=== PATIENT | male | born 1985 | race Two or more races ===

== ENCOUNTER 2016-09-18 01:37 | Inpatient (IN) | payer OTHER ==
--- NOTE | ~2016-09-18 | EKG ---
PATIENT: OLEG DELONG UNIT #: [id number] Ventricular Rate: 100 BPM Atrial Rate: 100 BPM P-R Interval: 188 ms QRS Duration: 80 ms Q-T Interval: 330 ms QTC Calculation(Bezet): 425 ms P [place]: 35 degrees Calculated R [place]: 29 degrees Calculated T [place]: 50 degrees Diagnosis Line: Normal sinus rhythm Diagnosis Line: Possible Left atrial enlargement Diagnosis Line: Borderline ECG Diagnosis Line: Diagnosis Line: Confirmed by GABINO GUTIERREZ MD ([id number]) on Diagnosis Line: 09/18/2016 2:02:34 PM INTERPRETING MD: BRENDA RINCON
--- NOTE | ~2016-09-18 | EKG ---
PATIENT: OLEG DELONG UNIT #: [id number] Ventricular Rate: 94 BPM Atrial Rate: 94 BPM P-R Interval: 174 ms QRS Duration: 76 ms Q-T Interval: 318 ms QTC Calculation(Bezet): 397 ms P [place]: 33 degrees Calculated R [place]: 17 degrees Calculated T [place]: 38 degrees Diagnosis Line: Normal sinus rhythm Diagnosis Line: Possible Left atrial enlargement Diagnosis Line: Borderline ECG Diagnosis Line: When compared with ECG of 18-SEP-2016 03:43, Diagnosis Line: No significant change was found Diagnosis Line: Confirmed by HERB ZAPATA MD ([id number]) on Diagnosis Line: 09/21/2016 1:37:01 PM INTERPRETING MD: CLARENCE
--- NOTE | ~2016-09-18 | CO ---
Unit #: [id number] #: [id number] Patient: OLEG DELONG [id number] [address] [place], [place] [address] [id number] I MR#: [id number] NAME: OLEG DELONG ROOM: 229 Age: 30 Sex: M Admission Date: 09/18/2016 : 1985 Attending Physician: Edison Ochoa M.D. Consultation Date: 09/18/2016 CONSULTATION REPORT HISTORY OF PRESENT ILLNESS This is a pleasant 30-year-old male with history of type 1 diabetes mellitus since the age of 4 years, history of gastroparesis, coronary artery disease plus stent placement x4, presented to the emergency room for not feeling well. He was started about 2 weeks ago on an insulin pump. His blood sugar started going up and he switched to the subcu insulins, but his blood sugars continued to stay high for which reason he came to the emergency room. On his labs, his blood glucose level was above 600. He was found to be in acute renal failure with creatinine of 3.3 and sodium of 124. His previous A1c in 01/2016 was at 8.0. He has been admitted to the unit bed, started on insulin drip and IV fluids. I have been asked to see the patient for further management. The patient does report that he has been taking his insulin regularly. Declines any fever, chills, or any flu-like symptoms. No urgency, frequency, or dysuria. He does have some nausea and retrosternal chest heartburn, but no vomiting. PAST MEDICAL HISTORY Type 1 diabetes mellitus since age 4 with gastroparesis and peripheral neuropathy, history of DKA, coronary artery disease plus stent placement x4, history of gastroparesis. SOCIAL HISTORY Lives at home. History of tobacco use, quit tobacco use. FAMILY HISTORY Has a brother with type 1 diabetes mellitus. ALLERGIES None. REVIEW OF SYSTEMS A complete 12-point review of system was completed, is unremarkable at this time except as noted in HPI. PHYSICAL EXAMINATION GENERAL: He is lying comfortable, no acute distress. VITAL SIGNS: His temperature 97.7, pulse is 83, respirations 16, and blood pressure is 132/75. HEENT: EOMI. Pupils equally reactive to light. NECK: Supple. No thyromegaly noted. CHEST: Good air entry. CVS: Regular rhythm. No murmurs. ABDOMEN: Soft and nontender. Bowel sounds positive. Unit #: [id number] #: [id number] Patient: OLEG DELONG EXTREMITIES: No edema. Ulcers are noted. No amputations. NEUROLOGIC: Nonfocal. SKIN: No skin rashes noted. DIAGNOSTIC STUDIES LABORATORY RESULTS: Labs were reviewed. His creatinine is 3.0, glucose 636. Sodium 129, chloride 95. Rest of the CMP is within normal limits. He does have some very mild ketones. ASSESSMENT 1. Type 1 diabetes mellitus, poorly controlled. Etiology is not very clear at this time. Could be due to the exacerbation of gastroparesis versus severe gastritis. 2. Acute kidney injury due to the combination of dehydration and use of nonsteroidal antiinflammatory drugs. 3. Coronary artery disease plus stent. PLAN We will start the patient on Levemir 40 units one dose now, followed by 25 units subcu b.i.d., NovoLog 1 unit for every 8 g carbohydrates with meals. Limit carbs 45 to 60 g each meal. Cover with supplemental insulin as needed. Discontinue insulin drip. Accu-Cheks q.4h, Reglan 5 mg p.o. a.c. and h.s. We will continue to follow for further management. Dictated by... Britney Avila/miroslava TD: 09/20/2016 03:17 JOB #: [id number] CONSULTATION REPORT Page 1 of 1 X Mona Claros MD CONSULTATION REPORT
--- NOTE | ~2016-09-18 | CO ---
Unit #: [id number] #: [id number] Patient: ANDRE DELONG [id number] [address] [place], [place] [address] [id number] I MR#: [id number] NAME: ANDRE DELONG ROOM: 229 Age: 30 Sex: M Admission Date: 09/18/2016 : 1985 Attending Physician: Edison Ochoa M.D. Consultation Date: 09/18/2016 CONSULTATION REPORT REASON FOR CONSULTATION Acute renal failure. HISTORY OF PRESENT ILLNESS Mr. Andre Olson is a type 1 diabetic, who I am seeing in the intensive care unit at [facility]. He has been admitted for diabetic ketoacidosis with acute kidney injury. The patient tells me that for 4 days he had had trouble controlling his blood sugar despite increasing his insulin. He is followed by Dr. Segundo. He began to feel worse and came to the ER because of nausea, vomiting, abdominal pain, and diarrhea. He was also taking ibuprofen for pain. He denies chest pain or shortness of breath. He denies fever or chills. I cannot localize a preceding illness. PAST MEDICAL HISTORY 1. Juvenile diabetes. 2. He has three-vessel coronary artery disease and has had stent placements in the mid and proximal LAD and the mid circumflex and mid RCA. On heart catheterization, his EF was found to be 20% to 30%. 3. Hypertension. 4. Dyslipidemia. 5. History of prior DKA. PAST SURGICAL HISTORY He has had cardiac catheterization with PCI and stent placement. HOME MEDICATIONS Include aspirin 81 mg daily, Coreg 6.25 mg t.i.d., Humalog 75/25, hydralazine 25 mg b.i.d., Imdur 30 mg daily, Lasix 20 mg daily, Lipitor 80 mg daily, Zestril 40 mg daily, Effient 10 mg daily, Neurontin 800 mg t.i.d., Renvela 800 mg t.i.d., tramadol 50 mg t.i.d., [place] 1 tablet b.i.d., simvastatin 40 mg q.h.s., Claritin 10 mg daily, and Vascepa 1 g daily. SOCIAL HISTORY He is a former smoker and quit in 05/2015. He is not . He does not drink or use drugs. He is an employee of [employer]. FAMILY HISTORY Negative for kidney disease. REVIEW OF SYSTEMS GENERAL: Currently, the patient is feeling better. His blood sugars have still been labile today. HEENT: He denies headache or blurry vision. Unit #: [id number] #: [id number] Patient: ANDRE DELONG CHEST: He denies chest pain or shortness of breath. ABDOMEN: No nausea, vomiting, or diarrhea. GENITOURINARY: No urinary symptoms. PHYSICAL EXAMINATION VITAL SIGNS: His blood pressure is 115/83, heart rate is 80, and temperature 97.9. GENERAL: He is a pleasant-appearing Nigerian male, in no acute distress. HEENT: Extraocular muscles are intact. No eye drainage or icterus. Oropharynx is clear. NECK: Supple without JVD, thyromegaly, or carotid bruit. CHEST: Clear to auscultation bilaterally. CARDIAC: S1 and S2. Normal sinus rhythm. No gallop or rub. ABDOMEN: Soft, nontender, and nondistended. Positive bowel sounds. On his abdomen, he has swelling related to his insulin injections. EXTREMITIES: No cyanosis, clubbing, or edema. DIAGNOSTIC STUDIES LABORATORY RESULTS: Shows BUN of 39 and creatinine 1.7. Sodium 136, potassium 4.8, chloride 99, bicarbonate 25, calcium 9, and albumin 4.4. Urinalysis is nitrites negative, protein 2+, negative blood, rbc's 2 to 5, wbc's 2 to 5. ASSESSMENT AND PLAN 1. Acute kidney injury, likely multifactorial. The patient has become volume depleted from an osmotic diuresis. This is in the setting of using NSAIDs and lisinopril as well as Lasix. He could have a component of acute tubular necrosis. The patient agrees to avoid ibuprofen and other NSAIDs going forward. 2. Nondiabetic ketoacidosis hyperglycemia with dehydration. 3. Juvenile diabetes with retinopathy and proteinuria. 4. Cardiomyopathy with a reduced ejection fraction around 30%. He has history of coronary artery disease with PCI and stent placement. 5. Hypertension with relative low blood pressure. 6. Chronic kidney disease, unspecified. His baseline creatinine appears to range between 1.1 and 1.4. Thank you very much for allowing me to see Ranjana Olson in consultation. I will follow closely with you. Dictated by... Britney Muñoz/miroslava TD: 09/20/2016 16:09 JOB #: [id number] CONSULTATION REPORT Page 1 of 1 X Bell Romero MD X CONSULTATION REPORT
--- NOTE | ~2016-09-18 | HP ---
Unit #: [id number] #: [id number] Patient: OLEG DELONG [id number] [address] [address] [id number] I MR#: [id number] NAME: OLGE DELONG ROOM: 229 Age: 30 Sex: M Admission Date: 09/18/2016 : 1985 Attending Physician: Edison Ochoa M.D. Primary Care Physician: Primary Care Physician No HISTORY AND PHYSICAL ADMISSION DIAGNOSES 1. Nondiabetic ketoacidosis hyperglycemia. 2. Atypical chest pain. 3. History of coronary artery disease with history of cardiomyopathy. 4. History of hypertension. 5. Hypotension. 6. Acute kidney injury. HISTORY OF PRESENT ILLNESS Mr. Wu Olson is a 30-year-old gentleman well known to our service secondary to previous admissions, comes to the emergency room with the complaints that at home he could not get his blood sugars down. Initial workup in the ER showed him with the blood sugars of 636 along with the BUN and creatinine of 33 and 3.0. Patient otherwise has no complaints. Denies any headache, dizziness, fever, chills, nausea, vomiting or diarrhea, or abdominal pain. The patient complains of some atypical chest discomfort occasionally stating that he might have a heartburn sensation in the chest. Again, no syncope or presyncopal episodes. REVIEW OF SYSTEMS Twelve-point review of systems on this patient is basically negative except as above. PAST MEDICAL HISTORY Significant for: 1. History of coronary artery disease status post PCI with stent. 2. History of cardiomyopathy. 3. History of insulin-dependent diabetes. 4. Dyslipidemia. 5. Hypertension. PAST SURGICAL HISTORY Significant for: 1. Cardiac catheterization with PCI with stents. 2. Insulin pump placement. HOME MEDICATIONS Include: 1. Aspirin. 2. Coreg. 3. Humalog mix. 4. Hydralazine. 5. Imdur. 6. Lasix. Unit #: [id number] #: [id number] Patient: OLEG DELONG 7. Lantus. 8. Lipitor. 9. Zestril. 10. Effient. 11. Neurontin. 12. Renvela. 13. Tramadol. 14. [place]. 15. Simvastatin. 16. Claritin. 17. Vascepa. ALLERGIES No known drug allergies. SOCIAL HISTORY No history of tobacco, alcohol, or illicit drugs. FAMILY HISTORY Unremarkable. PHYSICAL EXAMINATION VITAL SIGNS: BP 81/50, heart rate 75, respirations 16, temperature 98.5. GENERAL: The patient is a 30-year-old gentleman in no acute distress. HEENT: Head is atraumatic. Pupils equal, round, reactive to light and accommodation. Extraocular muscles are intact. Oropharynx is clear. NECK: Supple. No mass, no JVD, no bruits. LUNGS: Clear to auscultation bilaterally. HEART: S1, S2. No murmurs. ABDOMEN: Soft, nontender, nondistended. LOWER EXTREMITIES: Without any cyanosis, clubbing, or edema. NEUROLOGIC: Grossly intact. No focal deficits. DIAGNOSTIC STUDIES LABORATORY: Chemistry as above, sodium 129. White count 10.5, hemoglobin 14 and hematocrit 43. Set of cardiac enzymes negative. IMAGING: Chest x-ray negative. ASSESSMENT AND PLAN 1. Non-diabetic ketoacidosis hyperglycemia. Started on non-DKA IV insulin per non-DKA protocol. Admit to ICU. Consult Dr. Claros. 2. Atypical chest pain. Trend troponins. Cardiology to see. 3. Acute kidney injury on chronic kidney disease. Will hold the lisinopril. Avoid nephrotoxics. 4. History of coronary artery disease and cardiomyopathy in the past., ros PCI with stent. 5. Insulin-dependent diabetes. 6. Dyslipidemia. Continue home statin. 7. Continue GI and DVT prophylaxis with some Protonix and SCDs. Dictated by Unit #: [id number] #: [id number] Patient: OLEG DELONG M.D. OC/cherelle TD: 09/19/2016 22:57 JOB #: [id number] HISTORY AND PHYSICAL Page 1 of 1 X Edison Ochoa MD HISTORY AND PHYSICAL
--- NOTE | ~2016-09-18 | CO ---
Unit #: [id number] #: [id number] Patient: OLEG DELONG [id number] [address] [place], [place] [address] [id number] I MR#: [id number] NAME: OLEG DELONG ROOM: 229 Age: 30 Sex: M Admission Date: 09/18/2016 : 1985 Attending Physician: Edison Ochoa M.D. Primary Care Physician: Primary Care Physician No Consultation Date: 09/18/2016 CONSULTATION REPORT REASON FOR CONSULTATION Chest pain. HISTORY OF PRESENT ILLNESS This is a 30-year-old male from [place], well known to our group. He follows with Dr. Worley in the office. He has a history of coronary artery disease with anterior wall SD in 05/2015. Cardiac cath in 05/2015 showed left main short vessel, LAD 99%, proximal and mid, left circumflex 95%, RCA mid 99%, and PDA branch 95%. At that time, he underwent staged stents to mid and proximal LAD, mid circumflex, and mid RCA. He also has a history of ischemic cardiomyopathy with an EF of 10% to 15% per echo in 05/2015 and 20% to 30% per cath in 05/2015. A Cardiolite stress test done in 07/2015 was negative for stress-induced ischemia, but showed a small old lateral wall SD and the EF of 67%. In addition, he has a history of juvenile diabetes with history of diabetic ketoacidosis, chronic kidney disease, hypertension, hyperlipidemia, and former smoker. He presented to the ER after his blood glucoses were running in the high 800s at home all day. Denies any recent illness with fever, diarrhea, nausea, or vomiting. Denies any changes in his diet or medications. Denies chest pain or shortness of air. He does report epigastric burning that spreads up into his throat intermittently with some accompanied nausea. PAST MEDICAL HISTORY 1. Coronary artery disease, status post anterior wall SD in 05/2015, status post stent. 2. Cardiac cath in 05/2015 showed left main short vessel, LAD 99% proximal and 99% mid, left circumflex 95%, RCA mid 99%, and PDA branch 95%, status post staged stent to mid and proximal LAD, mid circumflex, and mid RCA. 3. Ischemic cardiomyopathy with EF 10% to 15% per echo in 05/2015 and 20% to 30% per cath in 05/2015 and 67% per stress test in 07/2015. 4. Chronic kidney disease. 5. Hypertension. 6. Juvenile diabetes with history of DKA. 7. Hyperlipidemia. 8. History of tobacco abuse, quit in 2015. PAST SURGICAL HISTORY 1. Cardiac cath with PCI and drug-eluting stent. 2. Right eye surgery. Unit #: [id number] #: [id number] Patient: OLEG DELONG SOCIAL HISTORY Denies alcohol or illicit drug use. Reformed smoker who quit in 05/2015. FAMILY HISTORY Denies a family history of premature coronary artery disease. ALLERGIES No known drug allergies. HOME MEDICATIONS Neurontin 800 mg t.i.d., Renvela 800 mg t.i.d., tramadol hydrochloride 50 mg p.o. t.i.d. p.r.n. pain, [place] 7.5/325 one b.i.d. p.r.n. pain, simvastatin 40 mg p.o. at bedtime, Lasix 20 mg p.o. daily, Lantus 15 units subcutaneous b.i.d., Lipitor 80 mg p.o. daily, Zestril 40 mg p.o. daily, Effient 10 mg p.o. daily, aspirin 81 mg p.o. daily, Coreg 6.25 mg p.o. t.i.d., Humalog Mix 75/25 sliding scale insulin, hydralazine 25 mg p.o. b.i.d., Imdur ER 30 mg p.o. daily, Claritin 10 mg p.o. daily, Vascepa 1 g once a day. REVIEW OF SYSTEMS Otherwise, negative except for what was stated in the HPI. PHYSICAL EXAMINATION VITAL SIGNS: Temperature 98, heart rate 107, respiratory rate 18, blood pressure 117/94, height 64 inches, weight 72.5 kg. GENERAL: This is a pleasant Bulgarian male, resting in bed, in no acute distress. HEENT: Head is atraumatic and normocephalic. Pupils are equal and round. Mucous membranes are moist. NECK: Supple. Trachea is midline. Negative for JVD. LUNGS: Clear to auscultation. Nonlabored respirations. CARDIOVASCULAR: S1, S2. Regular rate and rhythm. No murmurs, rubs, or gallops auscultated. ABDOMEN: Soft, nontender, nondistended. EXTREMITIES: Pulses are palpable. No pedal edema. No cyanosis. NEUROLOGIC: Alert and oriented x3. Moves all extremities equally and follows command without difficulty. DIAGNOSTIC STUDIES LABORATORY RESULTS: Sodium 124, potassium 5.1, chloride 88, BUN 38, creatinine 3.3, glucose 636. Hemoglobin 14.1, hematocrit 46.3, white blood cell count 10.5, platelets 269. Troponin less than 0.05. IMAGING STUDIES: No active process. No cardiomegaly. CARDIOVASCULAR STUDIES: EKG shows sinus tachycardia with ventricular rate of 102. Echocardiogram on 05/25/2015 showed EF of 10% to 15%, large anterior wall and apical akinesis, [id number] mitral regurge, trace tricuspid regurge, and trace pericardial effusion. ASSESSMENT 1. Insulin-dependent diabetes mellitus with markedly elevated blood glucose. 2. Hyperkalemia. 3. Acute kidney injury on chronic kidney disease. 4. Coronary artery disease, history of anterior wall myocardial infarction with staged stenting. 5. Hyperlipidemia. Unit #: [id number] #: [id number] Patient: OLEG DELONG 6. Reformed smoker. 7. Hypertension. 8. Gastroesophageal reflux disease. PLAN 1. Currently, stable from cardiovascular standpoint. We will assess LV function with a 2D echocardiogram. 2. Check fasting lipid profile. 3. BMP and CBC in a.m. 4. We will hold his LEANDRA inhibitor secondary to elevated creatinine. We will continue his hydralazine and nitrate combo. 5. Continue statin, beta-ira, dual antiplatelet therapy. Thank you for asking us to see this patient. We appreciate the consult. Dictated by... YOLANDE Field/miroslava TD: 09/19/2016 05:37 JOB #: [id number] CONSULTATION REPORT Page 1 of 1 X X CONSULTATION REPORT
--- NOTE | ~2016-09-18 | A ---
[facility] Nutrition Therapy DATE: 09/19/16 Patient: OLEG HA FORREST Physician: FIORELLA [address]: [address] Room/Bed: [address] [place] [address], Zip: [place] [address] Admit Date: 09/18/16 Date of : [birth year] Height: 5 4 Weight: 145 66 NUTRITIONAL ASSESSMENT: REASON: DKA DX 30 yo male admitted for DKA PMH: Type 1 DM, GERD, gastritis, HLD, HTN, CAD s/p stents Anthropometrics: Ht: 64" wt: 66 kg BMI: 25.0 Labs: Gluc 127 BUN 27 Creat 1.7 Alb 3.3 Accuchecks 135-243 Trig 1337 GFR 52.6 Meds: Levemir, reglan, novolog, protonix, furosemide I/O & Bowel function: 3750/2100, last BM 09/17 Skin Integrity: Rash BLE Edema: none noted Diet: Consistent carbohydrate/ low fiber Assessment: Chart reviewed, events noted. Pt admitted for DKA with h/o Type 1 DM and significant cardiovascular disease. [place]/ CKD noted. Pt c/o abdominal pain, and MD questioning gastroparesis. Per MD note, pt to have emptying study or EGD once stable, possibly as an outpatient. Pt has been placed on a 45 gram CC/ low fiber diet. Per previous admission RD notes, the pt has been educated on HH/CC diet strategies previously. RD spoke with the pt at bedside. Pt reports improvement in abdominal pain, and reports that he has been constipated lately. Pt denies any recent weight loss, noting 75-100% intake of meals. RD provided overview of low fiber/ HH/ CC diet. Pt appreciated the information, and reported that he typically only consumes one large meal per day at home. RD advised against this, and recommended smaller, more frequent heart healthy meals. Pt voiced understanding, and reports that he is likely going to get an insulin pump. Pt received information regarding his diet in the "Insulin pump packet" that he received. RD encouraged diet compliance, and pt agreed. Pt would likely benefit from seeing an outpatient RD for accountability. Dx: Impaired glycemic control RT poorly controlled DM AEB DKA Dx, accuchecks 135-243. Intervention: 1. Continue current diet, adding 6 small meals 2. Outpatient diet education [facility] Nutrition Therapy DATE: 09/19/16 Patient: OLEG CLAYTON Physician: FIORELLA Address: [address] Room/Bed: [address] [place] [address], Zip: [place] [address] Admit Date: 09/18/16 Date of : [birth year] Height: 5 4 Weight: 145 66 Monitoring, Evaluation and Goals: 1. Improve labs; glucose, accuchecks, trig, BUN, creat 2. GI; promote regular GI function Recommendations: 1. Continue 45 gram CCD + fiber restriction per MD. Add 6 small meals/ heart healthy to diet order. 2. Pt would benefit from seeing an outpatient RD for additional diet education and accountability, especially if he is diagnosed with gastroparesis. 3. Optimize the pt's insulin regimen noting elevated blood glucose levels. Pt is at mild nutritional risk. RD will follow hospital course. Respectfully, AL GREWAL RD, LD [employer] [facility] cc: client file
--- NOTE | ~2016-09-18 | CO ---
Unit #: [id number] #: [id number] Patient: OLEG DELONG [id number] [address] [address] [id number] I MR#: [id number] NAME: OLEG DELONG ROOM: 229 Age: 30 Sex: M Admission Date: 09/18/2016 : 1985 Attending Physician: Edison Ochoa M.D. Primary Care Physician: Primary Care Physician No Consultation Date: 09/18/2016 CONSULTATION REPORT REASON FOR CONSULTATION Abdominal pain and GERD. HISTORY OF PRESENTING ILLNESS Mr. Wu Olson is a 30-year-old gentleman, was admitted with poorly controlled diabetes mellitus. He says he has been watching everything and using his medications, however, his sugars stay high. He has a significant GERD symptoms along with recurrent regurgitation. He says he has been taking his PPIs regularly. No hematemesis. No melena. Mild epigastric discomfort. No change in bowel movements. PAST MEDICAL HISTORY Significant for; 1. Coronary artery disease, status post stent placements in 05/2015. 2. Diabetes mellitus, type 1. 3. Hypertension. 4. Effient therapy. 5. Hyperlipidemia. REVIEW OF SYSTEMS A complete 10-point review of systems was done, which is unremarkable other than as mentioned above. SOCIAL HISTORY Nonsmoker and nonalcoholic. FAMILY HISTORY Noncontributory. PHYSICAL EXAMINATION VITAL SIGNS: Stable. Afebrile. GENERAL: No acute distress. HEENT: Pupils are equal and reactive. Sclerae are anicteric. Oral mucosa is moist. NECK: No JVD. No lymphadenopathy. CHEST: Clear to auscultation bilaterally. CARDIOVASCULAR: Regular rate and rhythm. No murmurs. ABDOMEN: Soft, nontender, and nondistended. EXTREMITIES: Without clubbing, cyanosis, or edema. NEUROLOGIC: Intact grossly. No focal sensory or motor deficits. Cranial nerves are intact. SKIN: Warm and dry. DIAGNOSTIC STUDIES Unit #: [id number] #: [id number] Patient: OLEG DELONG LABORATORY RESULTS: BUN and creatinine are 38 and 3.3, sodium at 129. Amylase and lipase are abnormal. Liver functions are normal. CBC shows a hemoglobin of 14, white count of 10, and platelet count of 269. IMAGING STUDIES: Chest x-ray was done, which is unremarkable. ASSESSMENT AND PLAN 1. The patient with significant gastroesophageal reflux disease symptoms as well as regurgitation and epigastric discomfort. Possible gastroesophageal reflux disease complicated with gastroparesis. EGD was done previously in 2014 and shows chronic gastritis at that time. At this time, given his multiple problems, I will treat him symptomatically with PPIs and low-residue diet. We will consider gastric emptying scan and/or EGD once he is stable or as an outpatient later on. 2. Coronary artery disease. Ejection fraction of 15% last time. Status post stent placement. 3. Poorly controlled diabetes mellitus. Treatment in progress. Thank you Dr. Ochoa for this interesting consult. We will follow along. Dictated by... Britney Puga/miroslava TD: 09/18/2016 15:20 JOB #: [id number] CONSULTATION REPORT Page 1 of 1 X Gabriele Williamson MD X CONSULTATION REPORT
--- NOTE | ~2016-09-18 | DS ---
Unit #: [id number] #: [id number] Patient: OLEG DELONG [id number] [address] [address] [id number] I MR#: [id number] NAME: OLEG DELONG ROOM: 229 Age: 30 Sex: M Admission Date: 09/18/2016 : 1985 Discharge Date: 09/20/2016 Attending Physician: Edison Ochoa M.D. Primary Care Physician: No Primary Care Physician DISCHARGE SUMMARY CONSULTATION DURING HOSPITALIZATION 1. Dr. Claros - Endocrinology. 2. Dr. Calloway - Cardiology. FINAL DIAGNOSES 1. Non-diabetic ketoacidosis. 2. Hyperglycemia with a history of diabetes mellitus type 1. 3. Acute kidney injury due to combination of dehydration and use of nonsteroidal drugs. 4. History of coronary artery disease with history of cardiomyopathy. 5. History of chronic kidney disease. 6. Ejection fraction of 10% to 15%. 7. Hypertension. 8. Hyperlipidemia. DISCHARGE MEDICATIONS 1. Neurontin 800 mg three times a day. 2. Claritin 10 mg daily. 3. Lipitor 8 mg at bedtime. 4. Coreg 6.25 mg three times a day. 5. Lasix 20 mg daily. 6. Imdur 30 mg daily. 7. Levemir 30 units subcu b.i.d. 8. Humalog 8 units subcu t.i.d. 9. Zestril 40 mg daily. 10. Hydralazine 25 mg twice a day. 11. Simvastatin 14 mg q. h.s. 12. Aspirin 81 mg daily. 13. Hydrocodone on a p.r.n. basis. 14. Effient 10 mg daily. 15. Protonix 40 mg daily. LAB WORKUP ON DISCHARGE Sodium 139, potassium 4.4, chloride 105, BUN 27, creatinine 1.7, WBC 11.2, hemoglobin 12.7, hematocrit 38.4, platelet count of 243. Lipid profile shows total cholesterol 314, triglycerides 1337, HDL 29. Urinalysis was 2+ protein, more than 1000 glucose. Troponin less than 0.05. HOSPITAL COURSE Mr. Washburn is a 30-year-old male who has multiple medical problems, was admitted in the hospital with diabetic ketoacidosis. The patient has a Unit #: [id number] #: [id number] Patient: OLEG DELONG history of diabetes mellitus type 1. Dr. Claros was consulted and insulin drip was started and later on changed to Levemir. The patient's medications have been adjusted. The patient is doing much better on that aspect. The patient could have gastroparesis also. The patient was found to have acute kidney injury. Renal was consulted. Hydration was done. The patient is stable at this time. The patient does have a history of coronary artery disease. He did complain of chest pain. Cardiology was consulted. Troponin is negative so far. Echocardiogram is being done but results are still pending. We will wait for the results and cardiology is okay for discharge. EXAMINATION ON DISCHARGE Blood pressure 151/88, respiratory rate 18, pulse is 114, temperature 99.4. Oxygen saturation is 98%. Head is normocephalic. CHEST has fair air entry. No additional sounds. CVS: S1, S2 positive. Regular rhythm. ABDOMEN: Mild epigastric tenderness. No chest tenderness. Otherwise, abdomen is soft. No rigidity or rebound. Bowel sounds were positive. DISCHARGE INSTRUCTIONS Patient will be discharged home if okay with cardiology. Chest pain is very atypical. There is a possibility of indigestion. We are going to try Mylanta, one dose now, and prescription for Protonix has been written. I will confirm with renal about lisinopril as that was held during admission secondary to acute renal failure. Follow up with primary care provider in one week. Diet counseling done. Dictated by... Britney Laura TD: 09/23/2016 07:59 JOB #: [id number] DISCHARGE SUMMARY Page 1 of 1 X Kaylen Villa MD X DISCHARGE SUMMARY
--- NOTE | ~2016-09-18 | CR72 ---
[facility] A Service of [facility] & [facility] RADIOLOGY TEXT RESULTS PATIENT: OLEG DELONG LOCATION: [address] : [birth year] UNIT #: [id number] AGE: [address]: Edison Ochoa MD SEX: M ORDER DR: [id number] [facility] [address] [place], [place] [address] [id number] I MR#: [id number] #: [id number] NAME: OLEG DELONG : 1985 SEX: M STUDY DATE/TIME: 09/18/2016 3:22 UNIT: CEDOF ROOM: 42426 STUDY DESCRIPTION: CR Chest Single View Portable Attending Physician: Edison Ochoa M.D. Ordering Physician: Devin Shore D.O. Primary Care Physician: Primary Care Physician No MEDICAL IMAGING REPORT This report is preliminary unless electronic signature is present EXAM Portable chest INDICATION Chest pain today PROCEDURE Frontal view chest COMPARISON 06/15/2016 FINDINGS Heart size stable. Persistent low lung volumes. No new dense consolidation or pneumothorax. IMPRESSION No active process. No change from 06/15/2016. Dictated by... Harshad Alanis M.D. THIS IS AN ELECTRONICALLY VERIFIED REPORT Harshad Alanis M.D. at 09/18/2016 10:10 PM Gertrudis TD: 09/18/2016 09:52 JOB #: [id number] MEDICAL IMAGING REPORT Page 1 of 1 COPY
[~2016-09-18 01:37] MED LIST: ASPIRIN EC81 M1 PO; BRILINTA90 MG PO; CARVEDILOL6.25 MG PO; COREG6.25 M1 PO; EFFIENT10 MG PO; HUMALOG MIX 75/23 M1; HUMALOG100 U/M1 SQ; HUMALOG100 U/M2; HUMALOG100 U/ML SUBQ; HYDRALAZINE HCL25 MG PO; HYDROCHLOROTHIA25 MG PO; IMDUR-ER30 M1 DOB; IMDUR-ER30 M1 PO; LANTUS SOLOSTAR3 ML SUBQ; LANTUS100 U/ML SQ; LANTUS100 U/ML SUBQ; LANTUS100 UNITS/ SUBQ; LASIX20 MG PO; LIPITOR20 MG PO; LIPITOR40 MG PO; LIPITOR80 MG PO; LISINOPRIL PO; NEURONTIN300 MG PO; NEURONTIN800 MG PO; NITROGLYCERIN0.4 MG SL; NITROGLYGERIN0.4 MG SL; NORVASC10 MG PO; NOVOLIN R100 UNITS/; PROTONIX20 MG PO; RENVELA800 MG PO; ZESTRIL40 MG PO
[2016-09-18 04:14] LABS: BASOPHIL# 0.1 X10e3 (0-0.3); BASOPHIL% 0.6 % (0-2.5); EOSINOPHIL# 0.5 X10e3 (0-0.7); EOSINOPHIL% 5.2 % (0.0-7.0); HEMATOCRIT 43.3 % (38.0-50.0); HEMOGLOBIN 14.1 gm/dL (13.0-16.0); LYMPHOCYTE# 4.1 X10e3 (1.0-3.5); LYMPHOCYTE% 39.4 % (17.0-45.0); MEAN CORPUSCULAR HEMOGLOBIN 28.1 PG (28-34); MEAN CORPUSCULAR HGB CONC 32.6 g/dL (30-36); MEAN PLATELET VOLUME 8.9 FL (6.5-11.5); MONOCYTE# 0.9 X10e3 (0-1.0); MONOCYTE% 8.2 % (3.0-12.0); NEUTROPHIL# 4.9 X10e3 (1.5-7.1); NEUTROPHIL% 46.6 % (40-75); PLATELET COUNT 269 X10e3 (140-420); RED BLOOD COUNT 5.04 X10e (3.90-5.60); RED CELL DISTRIBUTION WIDTH 14.3 % (11.0-15.5); WHITE BLOOD COUNT 10.5 X10e3 (4.0-10.5)
[2016-09-18 04:17] LABS: DIFF IND NO
[2016-09-18 04:40] LABS: BETA HYDROXYBUTYRATE 0.54 MMOL/L (0.02-0.27); BILIRUBIN, DIRECT 0.1 mg/dL (0.0-0.2); BILIRUBIN,INDIRECT 0.5 mg/dL (0.0-0.9); BILIRUBIN,TOTAL 0.6 mg/dL (0.2-2.0); BUN/CREATININE RATIO 11.51; CALCIUM SERUM 9.2 mg/dL (8.4-10.2); CREATININE SERUM 3.3 mg/dL (0.6-1.4); GLOM FILT RATE Estimated 23.6 mL/min (>60); POTASSIUM 5.1 mmol/L (3.5-5.1)
[2016-09-18 04:44] LABS: URINE SOURCE CLEAN CATCH
[2016-09-18 04:45] LABS: POC - CKMB <1.0 ng/mL (0.0-7.9); POC - TROPONIN <0.05 ng/mL (<=0.05)
[2016-09-18 04:47] LABS: URINE APPEARANCE CLEAR; URINE BILIRUBIN NEG (NEG); URINE BLOOD NEG (NEG); URINE COLOR YELLOW; URINE GLUCOSE >1000 MG/DL (NEG); URINE KETONE NEG (NEG); URINE LEUKOCYTE ESTERASE NEG (NEG); URINE NITRATE NEG (NEG); URINE PH 5.5 (5-8); URINE PROTEIN 2+ (NEG); URINE UROBILINOGEN 0.2 MG/DL (NEG)
[2016-09-18 04:50] LABS: URBCS1 AUWI 0-2 /[HPF] (0-2); URINE BACTERIA AUWI NEG (NEGATIVE); URINE SQUAMOUS EPITHELIAL CELL NONE SEEN /[HPF]; UWBCS1 AUWI 0-2 (0-5)
[2016-09-18 04:52] LABS: CULTURE INDICATED? NO
[2016-09-18 06:37] LABS: POC - CKMB <1.0 ng/mL (0.0-7.9); POC - TROPONIN <0.05 ng/mL (<=0.05)
[2016-09-18 09:12] LABS: CALCIUM SERUM 9.1 mg/dL (8.4-10.2); GLOM FILT RATE Estimated 26.5 mL/min (>60); POTASSIUM 4.8 mmol/L (3.5-5.1)
[2016-09-18] MEDS ORDERED: RENVELA800 MG PO (09:58)
[2016-09-18] MEDS ORDERED: TRAMADOL HCL50 M1 PO (09:59)
[2016-09-18] MEDS ORDERED: HYDROCODON-ACE1 EAC9 PO (10:00)
[2016-09-18] MEDS ORDERED: SIMVASTATIN40 MG PO (10:01)
[2016-09-18] MEDS ORDERED: VASCEPA1 GM PO (10:01)
[2016-09-18] MEDS ORDERED: CLARITIN10 M3 PO (10:01)
[2016-09-18 13:05] LABS: CHOLESTEROL 314 mg/dL (0-200); HDL CHOLESTEROL 29 mg/dL (29-75); TRIGLYCERIDES 1337 mg/dL (10-160)
[2016-09-19 05:36] LABS: BASOPHIL# 0.1 X10e3 (0-0.3); BASOPHIL% 0.7 % (0-2.5); EOSINOPHIL% 8.7 % (0.0-7.0); HEMATOCRIT 38.4 % (38.0-50.0); HEMOGLOBIN 12.7 gm/dL (13.0-16.0); LYMPHOCYTE# 5.2 X10e3 (1.0-3.5); LYMPHOCYTE% 46.2 % (17.0-45.0); MEAN CELL VOLUME 85.6 FL (83-96); MEAN CORPUSCULAR HEMOGLOBIN 28.4 PG (28-34); MEAN CORPUSCULAR HGB CONC 33.2 g/dL (30-36); MEAN PLATELET VOLUME 8.8 FL (6.5-11.5); MONOCYTE# 0.6 X10e3 (0-1.0); MONOCYTE% 5.3 % (3.0-12.0); NEUTROPHIL# 4.4 X10e3 (1.5-7.1); NEUTROPHIL% 39.1 % (40-75); PLATELET COUNT 243 X10e3 (140-420); RED BLOOD COUNT 4.48 X10e (3.90-5.60); RED CELL DISTRIBUTION WIDTH 14.4 % (11.0-15.5); WHITE BLOOD COUNT 11.2 X10e3 (4.0-10.5)
[2016-09-19 05:39] LABS: DIFF IND NO
[2016-09-19 07:16] LABS: ALBUMIN SERUM 3.3 g/dL (3.5-5.0); BILIRUBIN,TOTAL 0.2 mg/dL (0.2-2.0); BUN/CREATININE RATIO 15.88; CALCIUM SERUM 8.8 mg/dL (8.4-10.2); CREATININE SERUM 1.7 mg/dL (0.6-1.4); GLOM FILT RATE Estimated 52.6 mL/min (>60); POTASSIUM 4.4 mmol/L (3.5-5.1); PROTEIN TOTAL SERUM 5.5 g/dL (6.0-8.3)
[2016-09-19 12:29] LABS: CREATININE,RANDOM URINE 24 mg/dL; TOTAL PROTEIN,RANDOM URINE 46 mg/dl (<10)
[2016-09-20 09:21] LABS: CK TOTAL 55 IU/L (36-174)
[2016-09-20 10:00] LABS: CALCIUM SERUM 8.8 mg/dL (8.4-10.2); POTASSIUM 4.8 mmol/L (3.5-5.1)
[2016-09-20 10:10] LABS: BUN/CREATININE RATIO 15.38; CREATININE SERUM 1.3 mg/dL (0.6-1.4); GLOM FILT RATE Estimated 72.7 mL/min (>60)
[2016-09-20] MEDS ORDERED: LEVEMIR100 UNITS/ SUBQ (14:04)
[2016-09-20] MEDS ORDERED: NOVOLOG100 U/ML SUBQ (14:05)
[2016-09-20] MEDS ORDERED: PROTONIX PO (14:06)
== END 2016-09-20 14:37 | disposition home or self-care (01) | DRG 699 ==
LOC: CED 01:37 → CEDOF 06:10 → CED 07:16 → CEDOF 07:16 → CICCU3 09:20 → CEDOF 09:20 → C2A 09-19 09:33
PROVIDERS: Emergency Medicine; Hospitalist; Internal Medicine; Internal Medicine Cardiovascular Disease; Internal Medicine Nephrology; Physician Assistant Medical
DX: E10.22 Type 1 diabetes mellitus with diabetic chronic kidney disease (principal); E87.2 Acidosis; I95.9 Hypotension, unspecified; N17.9 Acute kidney failure, unspecified; K31.84 Gastroparesis; E10.65 Type 1 diabetes mellitus with hyperglycemia; E10.42 Type 1 diabetes mellitus with diabetic polyneuropathy; E87.5 Hyperkalemia; E10.43 Type 1 diabetes mellitus with diabetic autonomic (poly)neuropathy; N18.3 Chronic kidney disease, stage 3 (moderate); E86.0 Dehydration; R07.89 Other chest pain; I25.10 Atherosclerotic heart disease of native coronary artery without angina pectoris; Z79.4 Long term (current) use of insulin; Z79.82 Long term (current) use of aspirin; I12.9 Hypertensive chronic kidney disease with stage 1 through stage 4 chronic kidney disease, or unspecified chronic kidney disease; E78.5 Hyperlipidemia, unspecified; Z87.891 Personal history of nicotine dependence; I25.5 Ischemic cardiomyopathy; I25.2 Old myocardial infarction
CPT/HCPCS: 36415; 71010; 80048; 80053; 80061; 80076; 81003; 82010; 82550; 82553; 82570; 82947; 84100; 84156; 84484; 85025; 93005; 93306; 96374; 96375; 99285; C9113; J1815; J2405

== ENCOUNTER 2016-11-01 20:08 | Inpatient (IN) | payer OTHER ==
[~2016-11-01] VITALS: Ht 165.1 cm; Wt 74.4 kg
--- NOTE | ~2016-11-01 | EKG ---
PATIENT: OLEG DELONG UNIT #: [id number] Ventricular Rate: 99 BPM Atrial Rate: 99 BPM P-R Interval: 166 ms QRS Duration: 88 ms Q-T Interval: 318 ms QTC Calculation(Bezet): 408 ms P [place]: 38 degrees Calculated R [place]: 30 degrees Calculated T [place]: 51 degrees Diagnosis Line: Normal sinus rhythm Diagnosis Line: Possible Left atrial enlargement Diagnosis Line: Borderline ECG Diagnosis Line: Diagnosis Line: Confirmed by GABINO GUTIERREZ MD ([id number]) on Diagnosis Line: 11/02/2016 2:01:08 PM INTERPRETING MD: BRENDA RINCON
--- NOTE | ~2016-11-01 | EKG ---
PATIENT: OLEG DELONG UNIT #: [id number] Ventricular Rate: 113 BPM Atrial Rate: 113 BPM P-R Interval: 152 ms QRS Duration: 76 ms Q-T Interval: 362 ms QTC Calculation(Bezet): 496 ms P [place]: 27 degrees Calculated R [place]: 42 degrees Calculated T [place]: 17 degrees Diagnosis Line: Sinus tachycardia Diagnosis Line: Possible Left atrial enlargement Diagnosis Line: Anterior infarct , age undetermined Diagnosis Line: Abnormal ECG Diagnosis Line: Diagnosis Line: Confirmed by GABINO GUTIERREZ MD ([id number]) on Diagnosis Line: 11/02/2016 2:00:32 PM INTERPRETING MD: BRENDA RINCON
--- NOTE | ~2016-11-01 | DS ---
Unit #: [id number] #: [id number] Patient: OLEG DELONG [id number] [address] [address] [id number] I MR#: [id number] NAME: OLEG DELONG ROOM: 577 Age: 30 Sex: M Admission Date: 11/02/2016 : 1985 Discharge Date: 11/03/2016 Attending Physician: Del Albright M.D. Primary Care Physician: Alfredo Sainz M.D. DISCHARGE SUMMARY DISCHARGE DIAGNOSES 1. Angina pectoris. 2. Acute kidney injury on chronic kidney disease, stage 3, resolved. 3. Transient hypotension secondary to antihypertensive. 4. Uncontrolled hypertension. 5. History of anterior wall myocardial infarction, status post multiple stents in 05/2015. 6. Recent exercise Cardiolite stress test on 07/04/2016 at [facility], which shows no ischemia and ejection fraction of 64%. 7. Peripheral neuropathy. 8. Hypertension. 9. Hyperlipidemia. 10. Diabetes mellitus type 1. 11. Nicotine abuse. DISCHARGE MEDICATIONS Humalog insulin per sliding scale a.c. and h.s., Lantus 25 units q.h.s., Lantus 25 units q.a.m., Vascepa 1 g p.o. daily, aspirin 81 mg daily, hydrocodone/acetaminophen 7.5/300 mg q.i.d., tramadol 50 mg t.i.d., Renvela 800 mg t.i.d., Effient 10 mg daily, Imdur 60 mg daily, gabapentin 800 mg t.i.d., loratadine 10 mg daily, atorvastatin 80 mg daily, carvedilol 12.5 mg b.i.d., amlodipine 5 mg daily, furosemide 20 mg q.h.s. and 40 mg q.a.m., hydralazine 25 mg b.i.d. HOSPITAL COURSE This is a 30-year-old male, who presented with a complaint of chest pain. He was ruled out for an acute myocardial infarction with negative cardiac enzymes and troponin. He had no EKG changes. He had a recent stress test done at [facility] on 07/05/2016 which showed no ischemia. For this reason, no repeat stress test was ordered. He has a history of multiple PCI and stents after large anterior wall myocardial infarction in 2016. He had multiple angioplasty stents placement to the LAD, circumflex, right coronary artery, and PDA with balloon angioplasty to the diagonal branch. He had no other blockages. He has been on dual-antiplatelet therapy with aspirin and Effient. He had an elevated creatinine of 2.1 during this stay. Lisinopril was discontinued. He also had an episode of transient hypotension after given a combination of pain medications and antihypertensive medications. His blood pressure was uncontrolled up to 180/100 mmHg. He was started on Norvasc. With increase in his Imdur and beta-ira to optimize his cardiac medicines. After the combination of these medications his blood pressure dropped to the 70s. He was treated Unit #: [id number] #: [id number] Patient: OLEG DELONG with IV fluids. His blood pressure improved. He remained on IV fluids throughout the night, because of his creatinine elevation. His creatinine improved to 1.7 the following day. He has ambulated in the hallway and has went off the floor to smoke on several occasions without any recurrent chest pain. He had no shortness of breath or arrhythmias. Bladder scan was done by Renal as well as renal ultrasound. Results of the renal ultrasound are currently pending. He is stable for discharge today. PHYSICAL EXAMINATION VITAL SIGNS: Blood pressure 150/91, heart rate 87, temperature 98.1. CHEST: Clear to auscultation. HEART: S1 and S2. Regular rate and rhythm. ABDOMEN: Soft with positive bowel sounds present. EXTREMITIES: Without leg edema. SKIN: Warm and dry. DIAGNOSTIC STUDIES LABORATORY RESULTS: Hemoglobin 12.6, hematocrit 38.6, platelet count 281, and white count 10.9. Sodium 136, potassium 4.2, BUN 22, creatinine 1.7, glucose 135. Cholesterol 195, triglycerides 572, LDL not done, HDL 27. CONSULTATIONS Dr. Knowles of Renal. DISCHARGE INSTRUCTIONS 1. The patient will be discharged home today. 2. Follow up with Dr. Worley in 6 weeks. Follow up with his primary care physician in 2 to 3 weeks. Follow up with Renal in 2 to 4 weeks. 3. The patient may return to work on 11/04/2016 without restrictions. 4. Continue dual anti-platelet therapy with aspirin and Effient. 5. Lisinopril has been discontinued, because of acute kidney injury. Renal will see the patient in the office and decide when to restart. 6. Norvasc has been added and carvedilol has been increased. Prescription has been provided. 7. Encourage the patient to quit smoking. Thank you for allowing us to assist with this patient's care. Dictated by... Erik HuertaPSusiRSusiN. for Britney Ansari/miroslava TD: 11/06/2016 05:33 JOB #: [id number] CC: Britney Piper/invision Please Delete DISCHARGE SUMMARY Page 1 of 1 X Benja Kelley APRN X DISCHARGE SUMMARY
--- NOTE | ~2016-11-01 | HP ---
Unit #: [id number] #: [id number] Patient: OLEG DELONG [id number] [place], [place] [address] [id number] I MR#: [id number] NAME: OLEG DELONG ROOM: 577 Age: 30 Sex: M Admission Date: 11/02/2016 : 1985 Attending Physician: Del Albright M.D. Primary Care Physician: Alfredo Sainz M.D. HISTORY AND PHYSICAL HISTORY OF PRESENT ILLNESS This is a 30-year-old male from [place], who has a history of anterior wall myocardial infarction in May 2015 where he underwent angioplasty and stent placement to the LAD with balloon angioplasty to the diagonal branch and direct stenting to the mid circumflex artery. He had disease in the right coronary artery then underwent staged PCI with drug-eluting stent placement to the right coronary artery and PDA two weeks later. His last stress test was in June of this year at [facility] that was normal according to the patient. He is known to have ischemic cardiomyopathy where his ejection fraction was 10 to 15% in 2015; however, his last echocardiogram in August of 2016 showed improvement of a left ventricular systolic function with an ejection fraction of 60 to 65%. The patient presents to the emergency room with the complaint of left anterior and mid sternal chest pressure that radiates to his left shoulder associated with nausea and dyspnea. His chest pain has been ongoing for the past three days. He took sublingual nitroglycerin without relief. There were no aggravating or alleviating factors. There was relief after receiving morphine in the emergency room. He was hypertensive with blood pressure 180/100 mmHg. Troponin negative. His EKG showed no acute ischemic changes. He states he has been taking his medication as scheduled. PAST MEDICAL HISTORY 1. Anterior wall myocardial infarction, 05/25/2015, at [facility] status post angioplasty with drug-eluting stent to the mid LAD, direct stenting to the mid circumflex artery and balloon dilatation to the diagonal branch per Dr. Worley. 2. Staged PCI with drug-eluting stent to the mid right coronary artery and PDA, 06/01/2015. 3. Stress test, 06/2016, at [facility]. Report not available. 4. 2D echocardiogram, 09/18/2016, showed an ejection fraction of 60 to 65% with trace mitral regurgitation. 5. Ischemic cardiomyopathy with an ejection fraction of 10 to 15%, 05/2015. 6. Hypertension. 7. Hyperlipidemia. 8. Type one diabetes mellitus. 9. Chronic kidney disease. 10. Former smoker. 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 He previously smoked one pack of cigarettes daily but quit 2015. He denies illicit drug and Unit #: [id number] #: [id number] Patient: OLEG DELONG alcohol use. FAMILY HISTORY Negative for coronary artery disease. ALLERGIES No known drug allergies. HOME MEDICATIONS 1. Gabapentin 800 mg q.i.d. 2. Tramadol 50 mg t.i.d. 3. Hydrocodone/acetaminophen 7.5/300 mg one q.i.d. 4. Humalog per sliding scale. 5. Lantus 25 units every evening. 6. Simvastatin 40 mg daily. 7. Loratadine 10 mg daily. 8. Icosapent ethyl one gram daily. 9. Effient 10 mg daily. 10. Renvela 800 mg t.i.d. 11. Lisinopril 40 mg daily. 12. Atorvastatin 80 mg daily. 13. Hydralazine 25 mg b.i.d. 14. Carvedilol 6.25 mg t.i.d. 15. Aspirin 81 mg daily. 16. Furosemide 40 mg q.h.s. with 40 mg q.a.m. 17. Imdur 30 mg daily. REVIEW OF SYSTEMS CONSTITUTIONAL: Negative for fever or chills. The patient has no weight gain or weight loss. HEENT: No headache. No vision changes, difficulty with swallowing. No dizziness. CARDIOVASCULAR: The patient has chest pain as described in the HPI. The patient denies palpitations. No paroxysmal nocturnal dyspnea or orthopnea. No syncope. RESPIRATORY: The patient had dyspnea that accompanies chest pain. No cough or hemoptysis. GASTROINTESTINAL: Positive for nausea. No vomiting, abdominal pain or diarrhea. EXTREMITIES: Negative for lower extremity edema. The patient reports lower extremity numbness. PHYSICAL EXAMINATION GENERAL APPEARANCE: This is a mildly obese, 30-year-old, young male who is in no acute respiratory distress. VITAL SIGNS: Blood pressure 148/109. Heart rate 97. Temperature 97.9. BMI 27. NEUROLOGIC: He is awake, alert, oriented. There are no focal weakness. NECK: Trachea is midline. No thyromegaly or lymphadenopathy. No jugular venous distention. HEART: S1, S2 heart sounds are normal. No murmurs or rubs or clicks. Regular rate and rhythm. LUNGS: Clear without rales, rhonchi or wheeze. ABDOMEN: Soft, nontender. Bowel sounds are present. EXTREMITIES: Without leg edema. SKIN: Warm and dry. DIAGNOSTIC STUDIES Unit #: [id number] #: [id number] Patient: OLEG DELONG LABORATORY: Hemoglobin 13.9, hematocrit 43.3, platelet count 300, white count 12.5. Sodium 137, potassium 4.3, BUN 23, creatinine 2.1, glucose 289. Troponin less than 0.05 and less than 0.03. IMAGING: Chest x-ray shows no active disease. CARDIOVASCULAR: EKG shows normal sinus rhythm, rate of 99 beats per minute with questionable old inferior infarct. IMPRESSION 1. Angina pectoris. 2. Uncontrolled hypertension. 3. Acute kidney injury on chronic kidney disease stage 3. 4. History of anterior wall myocardial infarction status post multiple PCI and stents, 05/2015. 5. Ischemic cardiomyopathy with improved ejection fraction of 65%. PLAN 1. The patient's chest pain may be ischemic in origin. He had a recent stress test done at [facility] that was normal according to the patient. We will obtain records. We will optimize his cardiac medicine. 2. Control blood pressure with increase in beta ira. 3. Hold LEANDRA inhibitor secondary to acute kidney injury. 4. We will have Renal to see the patient for acute kidney injury and clearance for cardiac catheterization if required. 5. Stress test was ordered. We will cancel. If the patient continues to have chest pain, he may need a repeat cardiac catheterization. 6. Continue dual antiplatelet therapy with aspirin and Plavix. 7. Re-evaluate his lipid levels. 8. Further recommendations to follow. Dictated by Garry HuertaRAddie. for Britney Ansari/allen TD: 11/03/2016 11:12 JOB #: [id number] CC: Jabier Worley M.D. HISTORY AND PHYSICAL Page 1 of 1 X Benja Kelley APRN X HISTORY AND PHYSICAL
--- NOTE | ~2016-11-01 | EKG ---
PATIENT: OLEG DELONG UNIT #: [id number] Ventricular Rate: 85 BPM Atrial Rate: 85 BPM P-R Interval: 186 ms QRS Duration: 78 ms Q-T Interval: 336 ms QTC Calculation(Bezet): 399 ms P [place]: 40 degrees Calculated R [place]: 21 degrees Calculated T [place]: 49 degrees Diagnosis Line: Normal sinus rhythm Diagnosis Line: Septal infarct , age undetermined Diagnosis Line: Abnormal ECG Diagnosis Line: When compared with ECG of 02-NOV-2016 13:37, Diagnosis Line: (unconfirmed) Diagnosis Line: Septal infarct is now Present Diagnosis Line: Nonspecific T wave abnormality now evident in Diagnosis Line: Inferior leads Diagnosis Line: Confirmed by JESUS CALLAHAN MD ([id number]) on Diagnosis Line: 11/04/2016 12:19:05 PM INTERPRETING MD: WILLEM
--- NOTE | ~2016-11-01 | US77 ---
[facility] A Service of [facility] & [facility] RADIOLOGY TEXT RESULTS PATIENT: OLEG DELONG LOCATION: [facility] 577-01 : [birth year] UNIT #: [id number] AGE: [address]: Del Albright MD SEX: M ORDER DR: [id number] [facility] [address] [place], [place] [address] [id number] I MR#: [id number] #: [id number] NAME: OLEG DELONG : 1985 SEX: M STUDY DATE/TIME: 11/03/2016 11:28 UNIT: [facility] ROOM: [facility] STUDY DESCRIPTION: US Kidney Bilateral Complete Attending Physician: Del Albright M.D. Ordering Physician: Del Albright M.D. Primary Care Physician: Alfredo Sainz M.D. MEDICAL IMAGING REPORT This report is preliminary unless electronic signature is present EXAM Complete renal ultrasound COMPARISON CT abdomen and pelvis dated October 15, 2015. INDICATIONS A 30-year-old male with acute renal insufficiency. Estimated GFR of 52 with BUN of 22 and creatinine of 1.7. History of hypertension and diabetes. FINDINGS Bladder is within normal limits. The right kidney is normal. There is a hypoechoic structure in the superior pole of the left kidney measuring 2.2 cm x 2.1 cm x 2.1 cm which does not have internal color flow. This has round shape and not definitely visualized on CT of February 16, 2016. There was a tiny area of hypoattenuation in the left kidney in this location on February 16, 2016, but the finding appears enlarged or may have been under characterized on noncontrast CT. This finding may have some posterior shadowing. IMPRESSION 1. Normal size and cortical thickness of the kidneys. Normal appearance of the urinary bladder. 2. A 2.1 cm x 2.2 cm on 2.3 cm round lesion in the superior pole of the left kidney with suggestion of posterior acoustic shadowing. No definite internal color flow. There may have been a hypoattenuating structure in this location in February 08, 2016, but the finding is either significantly enlarged since that time or may have been underrepresented on the noncontrast CT. In light of the patient's renal failure, consideration of MRI abdomen with and without IV STS. [facility] A Service of [facility] RADIOLOGY TEXT RESULTS PATIENT: OLEG DELONG LOCATION: [address] [place] [address] : [birth year] UNIT #: [id number] AGE: [address]: Del Albright MD SEX: M ORDER DR: contrast is recommended using IV Dotarem which is considered safe in renal failure is recommended, or alternatively CT abdomen with and without IV contrast could be performed when the patient's renal function recovers. Dictated by... Noel Puri M.D. THIS IS AN ELECTRONICALLY VERIFIED REPORT Noel Puri M.D. at 11/10/2016 4:09 PM Jose Luis TD: 11/03/2016 17:06 JOB #: [id number] MEDICAL IMAGING REPORT Page 1 of 1 COPY
--- NOTE | ~2016-11-01 | CR72 ---
[facility] A Service of [facility] & [facility] RADIOLOGY TEXT RESULTS PATIENT: OLEG DELONG LOCATION: [place] [address] : [birth year] UNIT #: [id number] AGE: [address]: Del Albright MD SEX: M ORDER DR: [id number] [facility] [address] [place], [place] [address] [id number] I MR#: [id number] Acc #: [id number] NAME: OLEG DELONG : 1985 SEX: M STUDY DATE/TIME: 11/01/2016 21:21 UNIT: CEDOF ROOM: 65813 STUDY DESCRIPTION: CR Chest Single View Portable Attending Physician: Del Albright M.D. Ordering Physician: Ed Jayro Jacob M.D. Primary Care Physician: Alfredo Sainz M.D. MEDICAL IMAGING REPORT This report is preliminary unless electronic signature is present EXAM Chest x-ray, 11/01/2016. HISTORY 30-year-old male in the ED complaining of 4-day history of cough, congestion and chest pain. TECHNIQUE AP portable chest x-ray. FINDINGS Shallow lung expansion. Heart size and pulmonary vascularity are normal. The lungs appear clear. No visible airspace consolidation or pleural effusion. No change since 09/18/2016. IMPRESSION No active disease. Shallow lung expansion. No change since 09/18/2016. Dictated by... Mac Navarro M.D. THIS IS AN ELECTRONICALLY VERIFIED REPORT Mac Navarro M.D. at 11/02/2016 4:55 PM MIKE/lenore TD: 11/02/2016 01:25 JOB #: [id number] MEDICAL IMAGING REPORT Page 1 of 1 COPY
--- NOTE | ~2016-11-01 | EKG ---
PATIENT: OLEG DELONG UNIT #: [id number] Ventricular Rate: 72 BPM Atrial Rate: 72 BPM P-R Interval: 166 ms QRS Duration: 88 ms Q-T Interval: 356 ms QTC Calculation(Bezet): 389 ms P [place]: 28 degrees Calculated R [place]: 39 degrees Calculated T [place]: 75 degrees Diagnosis Line: Normal sinus rhythm Diagnosis Line: poor R wave progression, cannot rule out septal Diagnosis Line: infarct Diagnosis Line: No new changes noted Diagnosis Line: Confirmed by JESUS CALLAHAN MD ([id number]) on Diagnosis Line: 11/04/2016 12:17:47 PM INTERPRETING MD: WILLEM
--- NOTE | ~2016-11-01 | CO ---
Unit #: [id number] #: [id number] Patient: OLEG DELONG [id number] [address] [address] [id number] MR#: [id number] NAME: OLEG DELONG ROOM: 577 Age: 30 Sex: M Admission Date: 11/02/2016 : 1985 Attending Physician: Del Albright M.D. Primary Care Physician: Alfredo Sainz M.D. CONSULTATION REPORT REASON FOR CONSULTATION Acute kidney injury. HISTORY OF PRESENT ILLNESS The patient is a 30-year-old male with past medical history of coronary artery disease status post stenting in the past, hypertension, diabetes mellitus type 1, and chronic kidney disease, who presented because of left upper chest pain that last 15 to 20 minutes and gets worse when he lays down on his left side. The patient reported it as well increasing dizziness, especially when change in position. Creatinine was noted to be 2.1 mg/dL. We will consult to help in management of his acute kidney injury. PAST MEDICAL HISTORY 1. Coronary artery disease status post stenting. 2. Hypertension. 3. Dyslipidemia. 4. Type 1 diabetes mellitus. 5. History of congestive heart failure, but latest ejection fraction of 60% to 65%. ALLERGIES No known drug allergy. SOCIAL HISTORY Quit smoking after his last heart attack. Denied drinking or illicit drug abuse. FAMILY HISTORY Negative for heart disease per patient. REVIEW OF SYSTEMS A 12-point review of systems was conducted and they are all negative except what is per history of present illness. PHYSICAL EXAMINATION GENERAL: Alert and oriented x3, in no acute distress. VITAL SIGNS: Temperature 97.7, heart rate 97, blood pressure 148/109. HEENT: Normocephalic and atraumatic. Pupils are equal, round, and reactive to light and accommodation. Extraocular muscle intact. NECK: No JVD. No lymphadenopathy. CHEST: Clear to auscultation bilaterally. HEART: Regular rate and rhythm. S1 and S2 normal. ABDOMEN: Bowel sounds positive. No tenderness. No guarding. Unit #: [id number] #: [id number] Patient: OLEG DELONG EXTREMITIES: No edema. No cyanosis. No clubbing. PSYCHIATRY: Affect is normal. NEUROLOGIC: Cranial nerves intact. Strength and sensation intact. DIAGNOSTIC STUDIES LABORATORY RESULTS: Creatinine at the time of admission was 2.1 mg/dL, sodium 137, potassium 4.3. ASSESSMENT AND PLAN 1. Acute kidney injury on chronic kidney disease on Lasix, creatinine was 1.3 mg/dL on September 20. The patient reported dizziness upon changing position. Worsening kidney fraction might be related to volume depletion. We will hold on potassium medication. We will start the patient on gently hydration. The patient reported some difficulty urinating and we will also check his renal ultrasound and post void residual. No repeat labs today were obtained and blood work as well today. We will obtain urinalysis and urine protein, and creatinine ratio. 2. Coronary artery disease, presented with chest pain. Management with Cardiology. 3. Hypertension, blood pressure was high at the time of admission. Now, blood pressure is acceptable. We will continue to monitor. 4. Diabetes mellitus type 1. I would like to thank, Dr. Del Albright, for allowing us to take care of this patient. Dictated by... Britney Deutsch/miroslava TD: 11/05/2016 05:12 JOB #: [id number] CONSULTATION REPORT Page 1 of 1 X X CONSULTATION REPORT
[~2016-11-01 20:08] MED LIST changes: +CLARITIN10 M3 PO; +HYDROCODON-ACE1 EAC9 PO; +LEVEMIR100 UNITS/ SUBQ; +NOVOLOG100 U/ML SUBQ; +PROTONIX PO; +SIMVASTATIN40 MG PO; +TRAMADOL HCL50 M1 PO; +VASCEPA1 GM PO
[2016-11-01 21:43] LABS: BASOPHIL# 0.1 X10e3 (0-0.3); BASOPHIL% 0.6 % (0-2.5); EOSINOPHIL# 0.9 X10e3 (0-0.7); EOSINOPHIL% 6.8 % (0.0-7.0); HEMATOCRIT 43.3 % (38.0-50.0); HEMOGLOBIN 13.9 gm/dL (13.0-16.0); LYMPHOCYTE% 32.3 % (17.0-45.0); MEAN CELL VOLUME 84.6 FL (83-96); MEAN CORPUSCULAR HEMOGLOBIN 27.2 PG (28-34); MEAN CORPUSCULAR HGB CONC 32.2 g/dL (30-36); MEAN PLATELET VOLUME 8.2 FL (6.5-11.5); MONOCYTE# 0.4 X10e3 (0-1.0); MONOCYTE% 3.1 % (3.0-12.0); NEUTROPHIL# 7.1 X10e3 (1.5-7.1); NEUTROPHIL% 57.2 % (40-75); PLATELET COUNT 300 X10e3 (140-420); RED BLOOD COUNT 5.12 X10e (3.90-5.60); WHITE BLOOD COUNT 12.5 X10e3 (4.0-10.5)
[2016-11-01 21:46] LABS: DIFF IND NO
[2016-11-01 21:55] LABS: POC - CKMB 1.5 ng/mL (0.0-7.9); POC - TROPONIN <0.05 ng/mL (<=0.05)
[2016-11-01 21:58] LABS: PARTIAL THROMBOPLASTIN TIME 25.5 SECONDS (23.5-31.3); PROTHROMBIN TIME (PATIENT) 10.7 SECONDS (10.0-11.7)
[2016-11-01 22:07] LABS: ALKALINE PHOSPHATASE 72 U/L (32-92); ALT (SGPT) 15 U/L (10-40); AST (SGOT) 19 U/L (10-42); BILIRUBIN, DIRECT <0.1 mg/dL (0.0-0.2); BILIRUBIN,TOTAL 0.1 mg/dL (0.2-2.0); BLOOD UREA NITROGEN 23 mg/dL (9-23); BUN/CREATININE RATIO 10.95; CALCIUM SERUM 8.8 mg/dL (8.4-10.2); CARBON DIOXIDE 25 mmol/L (22-31); CHLORIDE 105 mmol/L (100-111); CREATININE SERUM 2.1 mg/dL (0.6-1.4); GLOM FILT RATE Estimated 40.7 mL/min (>60); GLUCOSE FASTING 289 mg/dL (70-110); POTASSIUM 4.3 mmol/L (3.5-5.1); PROTEIN TOTAL SERUM 7.4 g/dL (6.0-8.3); SODIUM 137 mmol/L (135-145)
[2016-11-01 23:22] LABS: POC - CKMB 1.9 ng/mL (0.0-7.9); POC - TROPONIN <0.05 ng/mL (<=0.05)
[2016-11-02] MEDS ORDERED: EFFIENT10 MG PO (01:31)
[2016-11-02] MEDS ORDERED: RENVELA800 MG PO (01:32)
[2016-11-02] MEDS ORDERED: ZESTRIL40 MG PO (01:32)
[2016-11-02] MEDS ORDERED: ATORVASTATIN CA80 MG PO (01:33)
[2016-11-02] MEDS ORDERED: HYDRALAZINE HCL25 MG PO (01:33)
[2016-11-02] MEDS ORDERED: CARVEDILOL6.25 MG PO (01:34)
[2016-11-02] MEDS ORDERED: ASPIRIN81 M2 PO (01:37)
[2016-11-02] MEDS ORDERED: LASIX PO (01:42)
[2016-11-02] MEDS ORDERED: FUROSEMIDE40 MG PO (01:43)
[2016-11-02] MEDS ORDERED: IMDUR-ER30 M1 PO (01:44)
[2016-11-02] MEDS ORDERED: GABAPENTIN800 MG PO (01:45)
[2016-11-02] MEDS ORDERED: TRAMADOL HCL50 M2 PO (01:45)
[2016-11-02] MEDS ORDERED: HYDROCODON-ACE1 EA14 PO (01:47)
[2016-11-02] MEDS ORDERED: HUMALOG100 UNIT/1 SUBQ (01:48)
[2016-11-02] MEDS ORDERED: LANTUS100 UNITS/ SUBQ ×2 (01:50)
[2016-11-02] MEDS ORDERED: SIMVASTATIN40 MG PO (01:53)
[2016-11-02] MEDS ORDERED: CLARITIN10 M3 PO (01:54)
[2016-11-02] MEDS ORDERED: VASCEPA1 GM PO (01:54)
[2016-11-02 04:14] LABS: %MB 2.7 % (0.0-4.0); MB 2.9 ng/ml
[2016-11-02 10:02] LABS: %MB 2.6 % (0.0-4.0); MB 2.4 ng/ml
[2016-11-02 14:17] LABS: %MB 2.8 % (0.0-4.0)
[2016-11-02 14:23] LABS: BUN/CREATININE RATIO 12.77; CALCIUM SERUM 9.2 mg/dL (8.4-10.2); CREATININE SERUM 1.8 mg/dL (0.6-1.4); GLOM FILT RATE Estimated 49.1 mL/min (>60); POTASSIUM 4.7 mmol/L (3.5-5.1)
[2016-11-03 08:33] LABS: HEMATOCRIT 38.6 % (38.0-50.0); HEMOGLOBIN 12.6 gm/dL (13.0-16.0); MEAN CELL VOLUME 85.2 FL (83-96); MEAN CORPUSCULAR HEMOGLOBIN 27.8 PG (28-34); MEAN CORPUSCULAR HGB CONC 32.6 g/dL (30-36); MEAN PLATELET VOLUME 8.1 FL (6.5-11.5); RED BLOOD COUNT 4.54 X10e (3.90-5.60); RED CELL DISTRIBUTION WIDTH 14.8 % (11.0-15.5); WHITE BLOOD COUNT 10.9 X10e3 (4.0-10.5)
[2016-11-03 09:10] LABS: BLOOD UREA NITROGEN 22 mg/dL (9-23); BUN/CREATININE RATIO 12.94; CALCIUM SERUM 9.2 mg/dL (8.4-10.2); CARBON DIOXIDE 23 mmol/L (22-31); CHLORIDE 105 mmol/L (100-111); CHOLESTEROL 194 mg/dL (0-200); CREATININE SERUM 1.7 mg/dL (0.6-1.4); GLOM FILT RATE Estimated 52.6 mL/min (>60); GLUCOSE FASTING 135 mg/dL (70-110); HDL CHOLESTEROL 27 mg/dL (29-75); POTASSIUM 4.2 mmol/L (3.5-5.1); SODIUM 136 mmol/L (135-145)
[2016-11-03 09:12] LABS: TRIGLYCERIDES 572 mg/dL (10-160)
[2016-11-03] MEDS ORDERED: COREG PO (15:48)
[2016-11-03] MEDS ORDERED: NORVASC PO (15:49)
[2016-11-03] MEDS ORDERED: LASIX PO (15:55)
[2016-11-03] MEDS ORDERED: IMDUR-ER60 M3 PO (15:58)
== END 2016-11-03 17:12 | disposition home or self-care (01) | DRG 303 ==
LOC: CED 20:08 → CEDOF 11-02 00:45 → CED 11-02 00:54 → C5C 11-02 02:12 → CEDOF 11-02 02:12 → C5C 11-03 17:12
PROVIDERS: Emergency Medicine; Internal Medicine Cardiovascular Disease
DX: I25.119 Atherosclerotic heart disease of native coronary artery with unspecified angina pectoris (principal); E10.42 Type 1 diabetes mellitus with diabetic polyneuropathy; I95.2 Hypotension due to drugs; N17.9 Acute kidney failure, unspecified; N18.3 Chronic kidney disease, stage 3 (moderate); I12.9 Hypertensive chronic kidney disease with stage 1 through stage 4 chronic kidney disease, or unspecified chronic kidney disease; Z87.891 Personal history of nicotine dependence; Z95.5 Presence of coronary angioplasty implant and graft; Z79.4 Long term (current) use of insulin; E78.5 Hyperlipidemia, unspecified; I25.5 Ischemic cardiomyopathy; I25.2 Old myocardial infarction; T46.5X5A Adverse effect of other antihypertensive drugs, initial encounter; Y92.239 Unspecified place in hospital as the place of occurrence of the external cause
CPT/HCPCS: 36415; 71010; 76770; 80048; 80061; 80076; 82550; 82553; 82947; 83690; 84484; 85025; 85027; 85610; 85730; 93005; 96374; 96375; 99285; J0360; J1815; J2270; J3490